=== PATIENT | male | born 1935 | race Hispanic/Latino ===

== ENCOUNTER 2017-02-13 09:29 | Inpatient (IN) | payer MEDICARE ==
[2017-02-13 10:13] LABS: Oxyhemoglobin 94.2 % (94.0-97.0); Sodium 142 mmol/L (135-148)
[2017-02-13 10:14] LABS: Mode NC'; Vent NO
[2017-02-13 10:18] LABS: #Basophils 0.1 thou/uL (0.0-0.2); #Eosinphils 0.4 thou/uL (0.0-0.7); #Lymphocytes 1.6 thou/uL (1.20-3.40); #Monocytes 0.6 thou/uL (0.11-0.59); #Neutrophils 6.4 thou/uL (1.40-6.50); %Basophils 0.6 % (0.0-1.0); %Eosinophils 4.7 % (0.0-10.0); %Lymphocytes 17.3 % (21.0-51.0); %Monocytes 6.2 % (0.0-10.0); Hematocrit 27.7 % (42.0-52.0); Mean Platelet Volume 7.3 fL (7.4-10.4); Red Blood Cell (RBC) Count 2.46 mill/uL (4.70-6.10)
[2017-02-13 10:27] LABS: PTT 31.8 SEC (22.9-36.1); Prothrombin Time 14.6 SEC (12.0-14.7)
[2017-02-13] MEDS ORDERED: Magnesium Sulfate 2 GM/100 ML BAG ONE (10:28)
[2017-02-13] MEDS ORDERED: Dexamethasone 4 mg/ml Vial ONE (10:28)
--- NOTE | 2017-02-13 10:45 | RAD ---
CHEST 1 VIEW: HISTORY: Dyspnea. COMPARISON: 01/05/17. FINDINGS: Cardiac silhouette is magnified by projection. Pulmonary vasculature is more engorged with fluffy b ilateral perihilar and bibasilar infiltrates. Mediastinum is midline with atherosclerosis, a multil ead left subclavian cardiac electronic device, and a large-caliber right internal jugular dialysis-t ype catheter. There is no evidence of pneumothorax. it systems administrator leads overlie the chest. IMPRESSION: Increasing pulmonary vascular congestion. POS: ESTEFANIA
[2017-02-13 10:50] LABS: ALT (SGPT) 11 U/L (8-55); AST (SGOT) 22 U/L (5-34); Alkaline Phosphatase 94 U/L (40-150); Anion Gap 20 mmol/L (10-20); BUN (Urea Nitrogen) 81 mg/dL (8.4-25.7); Bilirubin, Total 0.7 mg/dL (0.2-1.2); CK (CPK) 156 U/L (30-200); Calc. Creatinine Clearance 0 mL/min (70-130); Calcium 9.7 mg/dL (7.8-10.44); Carbon Dioxide 18 mmol/L (23-31); Chloride 106 mmol/L (98-107); Estimated GFR-MDRD 5; Globulin 4.3 g/dL (2.4-3.5); Lipase 18 U/L (8-78); Protein, Total 7.6 g/dL (5.8-8.1)
[2017-02-13 10:53] LABS: Troponin I 0.108 ng/mL (< 0.028)
[2017-02-13] MEDS ORDERED: Heparin 1,000 UNITS/ML VIAL ONE (11:11)
--- NOTE | 2017-02-13 12:20 | CON ---
DATE OF CONSULTATION: 02/13/2017 NEPHROLOGY CONSULTATION REASON FOR CONSULTATION: End-stage renal disease and the need for hemodialysis. HISTORY OF PRESENTING ILLNESS: This is a very pleasant 81-year-old gentleman presented to the [facility] for shortness of breath which started 1-2 years ago. The patient denies headache, numbness, tin gling or weakness. Denies any nausea, vomiting or chest pain. PAST MEDICAL HISTORY: Significant for coronary artery disease, dementia, CKD, history of cardiac ca theterization, history of peripheral vascular disease, history of tunneled dialysis catheter, and he rnia repair. HOME MEDICATIONS: List reviewed. HOSPITAL MEDICATIONS: List reviewed. ALLERGIES: Reviewed. SOCIAL HISTORY: No alcohol or drug use. REVIEW OF SYSTEMS: Fifteen-point review of systems was performed and negative except positives note d above. GENERAL: Weakness- HEAD: Headache- NECK: No swelling or lumps. NOSE: No epistaxis or discharge. EYES: No diplopia or pain. RESPIRATORY: Dyspnea- CARDIOVASCULAR: Chest pain- GASTROINTESTINAL: Nausea- /DIE TESTER: Hematuria- MUSCULOSKELETAL: No joint pain. NEUROPSYCHIATIC SYSTEMS: No suicidal ideation. No ideation. SKIN: Denies any rash or ulcer. CONSTITUTIONAL: No fever or chills. PHYSICAL EXAMINATION: GENERAL: Patient is awake, alert. VITAL SIGNS: Afebrile, pulse 70, breathing at 16, blood pressure 160/70. GENERAL APPEARANCE AND MENTAL STATUS: Fair. HEAD/NECK: Normocephalic. Atraumatic. EYES: EOMI. No deformity. EARS: Clear. No ulcers. NOSE: Intact. No lesions. MOUTH: Clear. No discharge. THROAT: Clear. No exudate. LUNGS: Clear. No crackles. CARDIAC: S1, S2. No rub. ABDOMEN: Benign. BS+. GENITALIA/RECTUM: Montero absent. BACK/EXTREMITIES: Edema 0+ Ulcer- NEUROLOGICAL: Alert and motor intact. SKIN: Rash- Bruise- LYMPHATICS: Edema- Ulcer- LABORATORY DATA: Show hemoglobin 9.3, creatinine 9.35, and potassium 4.1. ASSESSMENT AND PLAN: 1. Stage 6 chronic kidney disease. We will plan hemodialysis. 2. Hypertension. Plan ultrafiltration. 3. Anemia, stable. 4. Medications based on glomerular filtration rate are appropriate, but consent for dialysis was ob tained.
[2017-02-13] MEDS ORDERED: Ondansetron ODT 4 MG TAB PO PRN (12:39)
[2017-02-13] MEDS ORDERED: Dextrose 5% in Water 1,000 ML IV PRN (12:39)
[2017-02-13] MEDS ORDERED: Acetaminophen 325 MG TAB PO PRN (12:39)
[2017-02-13] MEDS ORDERED: Dextrose 50% Abboject 50 ML SYRINGE SLOW IVP PRN (12:39)
[2017-02-13] MEDS ORDERED: HumaLOG 300 UNITS/3 ML VIAL SC PRN (12:39)
[2017-02-13 14:14] LABS: Troponin I 0.114 ng/mL (< 0.028)
--- NOTE | 2017-02-13 14:40 | HP ---
DATE OF ADMISSION: 02/13/2017 CHIEF COMPLAINT: Shortness of breath. HISTORY OF PRESENT ILLNESS: This is an 81-year-old male with a past medical history of end-stage re nal disease on hemodialysis as well as severe dementia presenting with a 1 day history of worsening shortness of breath. Notably, he is a hemodialysis dependent patient. The family had been attempti ng to wean the frequency of his hemodialysis with a plan to eventually stop it and place the patient on hospice. They had weaned the frequency of his hemodialysis to once a week and he would have bee n due for dialysis today; however, overnight he developed significant shortness of breath with disco mfort, thereby prompting family to bring him here to the Emergency Department. Dr. Akins is his [facility] reiki practitioner and had been following him throughout this process. Dr. Loki Cagle is his [facility] physician. He most recently saw Dr. Loki Cagle on 02/05/2017 for possible seizure-like activity. He was referred to Neurology at that time, but has not seen the neurologist yet. This is not an issue that the family brought up today, just something seen in the outpatient chart. PAST MEDICAL HISTORY: Significant for high blood pressure, high cholesterol, type 2 diabetes, and h istory of pacemaker. SURGICAL HISTORY: Hernia repair in 1973, pacemaker placement, he has a right subclavian hemodialysi s access catheter. FAMILY HISTORY: Noncontributory. SOCIAL HISTORY: Lives with family. Does not smoke, does not drink alcohol. HOME MEDICATIONS: 1. Amlodipine 10 mg daily. 2. Donepezil 10 mg daily. 3. Clindamycin 150 mg 2 capsules every 8 hours. 4. Hydralazine 50 mg daily. 5. Aspirin 81 mg daily. 6. Carvedilol 25 mg b.i.d. 7. Plavix 75 mg daily. ALLERGIES: No known drug allergies. REVIEW OF SYSTEMS: Unable to be obtained as the patient is nonverbal. PHYSICAL EXAMINATION: VITAL SIGNS: Pulse in the 60s, O2 sat 100% on 2 liters of oxygen by nasal cannula, respiratory rate 18, and blood pressure 160s/80s. GENERAL: This is a frail appearing elderly male in no apparent distress at this time with oxygen in place. HEENT: Unremarkable. NECK: Supple with no lymphadenopathy. HEART: Regular rate and rhythm with a 2/6 systolic blowing murmur. LUNGS: Have bibasilar crackles. ABDOMEN: Soft, nontender, and nondistended with normoactive bowel sounds. EXTREMITIES: Show no clubbing, cyanosis, or edema. NEUROLOGIC: Exam is not performed due to patient's inability to cooperate. LABORATORY DATA: Remarkable for hemoglobin of 9.3, hematocrit of 27.7, platelets of 250. INR is 1. 1. ABG showed pH of 7.45 with paO2 of 75.9. Comprehensive metabolic panel is remarkable for BUN of 81 and creatinine of 9.35. Notably, he also has troponin of 0.108 as well as BNP of 6991. ASSESSMENT AND PLAN: 1. This is an 81-year-old male with fluid overload secondary to decreased frequency of hemodialysis . 2. End-stage renal disease requiring hemodialysis. Dr. Akins has been consulted by the ER, Dr. Kelly choi has already seen the patient, they are preparing to dialyze him today to deal with fluid overloa d. 3. Elevated troponin. I suspect this is secondary to fluid overload and renal disease, but will tr end over the next several hours. Patient can be admitted to telemetry. 4. BNP elevation, again indicative of fluid overload. 5. Hypertension. We will continue the patient on all of his home medications. 6. End-stage dementia. Continue the patient's donepezil. 7. Dr. Encarnacion take over care of this patient in the morning.
[2017-02-13 16:02] VITALS: BMI 22.4
[2017-02-13 18:35] LABS: 24 Hr Creatinine 420.16 mg/24 hr (950-2490)
[2017-02-14 06:42] LABS: #Lymphocytes 1.2 thou/uL (1.20-3.40); #Monocytes 0.7 thou/uL (0.11-0.59); %Basophils 0.2 % (0.0-1.0); %Eosinophils 0.1 % (0.0-10.0); %Lymphocytes 20.3 % (21.0-51.0); %Monocytes 12.2 % (0.0-10.0); Hematocrit 23.6 % (42.0-52.0); Mean Platelet Volume 7.5 fL (7.4-10.4); Red Blood Cell (RBC) Count 2.11 mill/uL (4.70-6.10); White Blood Cell (WBC) Count 5.9 thou/uL (4.8-10.8)
[2017-02-14 07:18] LABS: Anion Gap 13 mmol/L (10-20); BUN (Urea Nitrogen) 38 mg/dL (8.4-25.7); Calc. Creatinine Clearance 11 mL/min (70-130); Calcium 9.1 mg/dL (7.8-10.44); Carbon Dioxide 27 mmol/L (23-31); Chloride 101 mmol/L (98-107); Estimated GFR-MDRD 14
[2017-02-14] MEDS ORDERED: Famotidine 20 MG TAB PO SCH (09:00)
[2017-02-14] MEDS ORDERED: FLU VACC TS2017-18 (>65YR) 0.5 ML SYRINGE IM ONE (09:00)
[2017-02-14] MEDS ORDERED: Acetaminophen 325 MG TAB PO PRN (09:39)
[2017-02-14 10:19] LABS: Iron 61 ug/dL (65-175)
--- NOTE | 2017-02-14 10:25 | PRG ---
DATE OF SERVICE: 02/14/2017 SUBJECTIVE: The patient is sitting up in bed with family in the room. He is eating breakfast with no problems. He denies shortness of breath this morning. He is feeling better. PHYSICAL EXAMINATION: VITAL SIGNS: Temperature 99.5, pulse 72, respirations 18, oxygen saturation of 100% on 1 liter oxyg en, blood pressure 158/72. GENERAL: Alert, oriented to name only. No apparent distress. HEENT: Normocephalic. Pupils equally round and reactive to light. Extraocular muscles intact. HEART: Regular rate and rhythm with no murmurs. LUNGS: Clear to auscultation bilaterally. ABDOMEN: Soft, nontender, nondistended. EXTREMITIES: No cyanosis, clubbing or edema. LABORATORY DATA: White blood cell count 5.9, hemoglobin 7.9, hematocrit 23.6, MCV 112. Sodium 137, potassium 4.0, chloride 101, carbon dioxide 27, BUN 38, creatinine 4.25, glucose 112, ca lcium 9.1. ASSESSMENT AND PLAN: 1. Fluid overload. The patient received dialysis last night and pulled off 2 liters fluid. Denies shortness of breath this morning. Continue to follow with Dr. Hannon while in the hospital. 2. End-stage renal disease. 3. Hypertension. The patient has not been on his home medications. We will restart his hypertensi ve medications. 4. End-stage dementia. 5. Anemia of chronic disease. His hemoglobin has dropped about a point and a half from yesterday. We will do anemia workup while he is here.
--- NOTE | 2017-02-14 11:04 | PRG ---
DATE OF SERVICE: 02/14/2017 SUBJECTIVE: An 81-year-old gentleman being seen for end-stage renal disease. The patient denies an y nausea, vomiting or chest pain. PHYSICAL EXAMINATION: GENERAL: Patient is awake, alert. VITAL SIGNS: Afebrile, pulse 76, breathing at 16, blood pressure 158/72. HEAD/NECK: Normocephalic, atraumatic. EYES: EOMI. No deformity. EARS: Clear. No ulcers. NOSE: Intact. No lesions. MOUTH: Clear. No discharge. THROAT: Clear. No exudate. LUNGS: Clear. No crackles. CARDIAC: S1, S2. No rub. ABDOMEN: Benign. BS+. GENITALIA/RECTUM: Montero absent. BACK/EXTREMITIES: Edema 0+ Ulcer-. NEUROLOGICAL: Alert and motor intact. SKIN: Rash- Bruise- LYMPHATICS: Edema- Ulcer-. LABORATORY DATA: Show hemoglobin 7.9. ASSESSMENT AND RECOMMENDATIONS: 1. Stage 6 chronic kidney disease, continue hemodialysis. 2. Hypertension, stable. 3. Anemia. We will give Epogen. 4. Medication based on glomerular filtration rate are appropriate. Discussed compliance with dialy sis. Family is undecided to continue dialysis. Overall, prognosis is extremely poor.
[2017-02-14] MEDS ORDERED: Carvedilol 6.25 MG TAB PO SCH (11:15)
[2017-02-14] MEDS ORDERED: Clopidogrel Bisulfate 75 MG TAB PO SCH (11:15)
[2017-02-14 11:39] VITALS: BP 161/73
[2017-02-14 11:45] VITALS: TEMP 99
[2017-02-14] MEDS ORDERED: Epoetin (ESRD) 10,000 UNITS/ML VIAL SC SCH (12:00)
--- NOTE | 2017-02-14 18:50 | DIS ---
DATE OF ADMISSION: 02/13/2017 DATE OF DISCHARGE: 02/14/2017 ADMISSION DIAGNOSES: 1. Fluid overload. 2. End-stage renal disease. 3. Elevated troponin. 4. BNP elevation. 5. Hypertension. 6. End-stage dementia. DISCHARGE DIAGNOSES: 1. Fluid overload, resolved. 2. End-stage renal disease. 3. Hypertension. 4. End-stage dementia. CONSULTS: Dr. Riddhi chan for Dr. Akins. PROCEDURES: Dialysis. HOSPITAL COURSE: This is an 81-year-old male with past medical history of end-stage renal disease and dementia, who presented with worsening shortness of breath. He was receiving hemodialys is twice a week. He was on a trial of once a week dialysis; however, he became fluid overloaded. In the hospital, he received dialysis, was able to remove fluid off and improve his shortness of frida ath. As for his hypertension, we continued his home medications and his blood pressure was stable. As for end-stage dementia, we continued his home dose of donepezil. DISPOSITION: Stable. DISCHARGE INSTRUCTIONS: 1. Discharged to home. 2. Diet: Renal. 3. Followup: Follow up with Dr. Akins in 1-2 weeks. Continue dialysis twice a week. Follow up with Dr. Cagle in 2 weeks.
[2017-02-14] MEDS ORDERED: Donepezil HCl 10 MG TAB PO SCH (21:00)
[2017-02-15] MEDS ORDERED: Clopidogrel Bisulfate 75 MG TAB PO SCH (09:00)
[2017-02-15] MEDS ORDERED: Carvedilol 6.25 MG TAB PO SCH (09:00)
--- NOTE | 2017-02-16 06:41 | EKG ---
Test Reason : Blood Pressure : / mmHG Vent. Rate : 081 BPM Atrial Rate : 083 BPM P-R Int : 000 ms QRS Dur : 130 ms QT Int : 416 ms P-R-T Axes : 053 014 101 degrees QTc Int : 483 ms Electronic ventricular pacemaker Confirmed by RIP NICOLE, DALE ([id number]), editorial specialist DWAIN GUTIERREZ ([id number]) on 02/16/2017 6:41:15 AM Referred By: Confirmed By:DALE ERWIN MD
== END 2017-02-14 16:04 | disposition home or self-care (01) | DRG 640 ==
LOC: ERS 09:29 → 2NO 13:13
PROVIDERS: ADMIT Family Medicine; ATTEND Family Medicine
PROC: 5A1D70Z Performance of Urinary Filtration, Intermittent, Less than 6 Hours Per Day (ICD-10-PCS; principal; 2017-02-13)
DX: E87.70 Fluid overload, unspecified (principal); N18.6 End stage renal disease; I13.2 Hypertensive heart and chronic kidney disease with heart failure and with stage 5 chronic kidney disease, or end stage renal disease; L89.152 Pressure ulcer of sacral region, stage 2; F03.90 Unspecified dementia, unspecified severity, without behavioral disturbance, psychotic disturbance, mood disturbance, and anxiety; I50.9 Heart failure, unspecified; Z99.2 Dependence on renal dialysis; D64.9 Anemia, unspecified; Z95.810 Presence of automatic (implantable) cardiac defibrillator; I25.2 Old myocardial infarction; I25.10 Atherosclerotic heart disease of native coronary artery without angina pectoris
CPT/HCPCS: 36415; 36416; 71010; 80048; 80053; 82550; 82553; 82570; 82607; 82728; 82746; 82805; 83540; 83550; 83605; 83690; 83880; 84484; 85025; 85610; 85730; 87040; 87324; 87340; 87449; 90935; 93005; 96365; 96375; G0257; J1100; J1644; J3475; Q4081